=== PATIENT | male | born 1995 | race Hispanic/Latino ===

== ENCOUNTER 2022-11-13 17:50 | Day surgery (SDC) | payer SELFPAY ==
[2022-11-13 18:04] LABS: #Basophils 0.1 thou/uL (0.0-0.2); #Eosinphils 0.2 thou/uL (0.0-0.7); #Monocytes 0.7 thou/uL (0.11-0.59); #Neutrophils 5.1 thou/uL (1.40-6.50); %Basophils 0.5 % (0.0-1.0); %Eosinophils 1.9 % (0.0-10.0); %Lymphocytes 34.8 % (21.0-51.0); %Neutrophils 54.6 % (42.0-75.0); Hematocrit 45.7 % (42.0-52.0); Hemoglobin 15.5 g/dL (14.0-18.0); Mean Corpuscular HGB CONC 33.9 g/dL (32.0-36.0); Mean Corpuscular Hemoglobin 30.5 pg (27.0-31.0); Mean Platelet Volume 9.6 fL (7.4-10.4); Platelet Count 274 10x3/uL (130-400); RBC Distribution Width 12.6 % (11.5-14.5); Red Blood Cell (RBC) Count 5.08 mill/uL (4.70-6.10); White Blood Cell (WBC) Count 9.3 10x3/uL (4.8-10.8)
[2022-11-13] MEDS ORDERED: Morphine 4 MG/ML VIAL ONE ×3 (18:04→18:19)
[2022-11-13] MEDS ORDERED: SUGAMMADEX SODIUM 200 MG/2 ML VIAL ONE (18:13)
[2022-11-13] MEDS ORDERED: Sevoflurane 250 ML INH ANEST BOTTLE ONE (18:13)
[2022-11-13] MEDS ORDERED: Famotidine/PF 20 mg/2ml Vial ONE (18:13)
[2022-11-13] MEDS ORDERED: fentaNYL 50 mcg/mL 1 mL Vial ONE ×2 (18:13)
[2022-11-13 18:17] LABS: INR-International Normal Ratio 0.9; PTT 27.1 sec (22.9-36.1)
[2022-11-13] MEDS ORDERED: Heparin 5,000 UNITS/ML VIAL ONE (18:24)
[2022-11-13] MEDS ORDERED: Protamine Sulfate 50 MG/5 ML VIAL ONE (18:24)
[2022-11-13 18:30] LABS: ALT (SGPT) 106 U/L (8-55); AST (SGOT) 41 U/L (5-34); Albumin 4.4 g/dL (3.5-5.0); Alkaline Phosphatase 90 U/L (40-110); Anion Gap 12 mmol/L (10-20); BUN (Urea Nitrogen) 15 mg/dL (8.9-20.6); Bilirubin, Total 0.3 mg/dL (0.2-1.2); Calc. Creatinine Clearance 0 mL/min (70-130); Calcium 8.8 mg/dL (7.8-10.44); Carbon Dioxide 24 mmol/L (22-29); Chloride 107 mmol/L (98-107); Estimated GFR 81; Globulin 3.3 g/dL (2.4-3.5); Glucose 124 mg/dL (70-105); Potassium 3.9 mmol/L (3.5-5.1); Protein, Total 7.7 g/dL (6.0-8.3); Sodium 139 mmol/L (136-145)
[2022-11-13] MEDS ORDERED: Ondansetron PF 4 MG/2 ML Vial ONE (18:41)
[2022-11-13] MEDS ORDERED: PROPOFOL 200 MG/20 ML VIAL ONE (18:41)
[2022-11-13] MEDS ORDERED: NEOSTIGMINE 3 MG/3 ML SYR 3 MG/3 ML SYRINGE ONE (18:41)
[2022-11-13] MEDS ORDERED: Glycopyrrolate 0.2 MG/ML 5 ML SYRINGE ONE (18:41)
[2022-11-13] MEDS ORDERED: Succinylcholine 200 MG/10 ml SYRINGE FS ONE (18:41)
[2022-11-13] MEDS ORDERED: Rocuronium Bromide 10 MG/ML (10ML VIAL) ONE (18:41)
[2022-11-13] MEDS ORDERED: Metoclopramide HCl 10 MG/2 ML VIAL ONE (18:41)
[2022-11-13] MEDS ORDERED: Lidocaine 1% PF 5 ML VIAL ONE (18:41)
[2022-11-13] MEDS ORDERED: Dexamethasone 20 MG/5 ML VIAL ONE (18:41)
[2022-11-13] MEDS ORDERED: Ketorolac Tromethamine 30 MG/ML VIAL ONE (18:41)
[2022-11-13] MEDS ORDERED: hydrALAZINE 20 MG/ML VIAL SLOW IVP PRN (18:42)
[2022-11-13] MEDS ORDERED: TETANUS, DIPHTHERIA TOX,ADULT (TDVAX) 0.5 ML VIAL IM ONE (18:42)
[2022-11-13] MEDS ORDERED: Morphine 2 MG/ML VIAL SLOW IVP PRN (18:42)
[2022-11-13] MEDS ORDERED: Glucagon 1 MG/ML KIT IM PRN (18:42)
[2022-11-13] MEDS ORDERED: Ipratropium/Albuterol 3 ML NEB NEB PRN (18:42)
[2022-11-13] MEDS ORDERED: Dextrose 50% Abboject 50 ML SYRINGE SLOW IVP PRN (18:42)
[2022-11-13] MEDS ORDERED: Dextrose 5% in Water 1,000 ML IV PRN (18:42)
[2022-11-13] MEDS ORDERED: Ondansetron PF 4 MG/2 ML Vial IVP PRN (18:42)
[2022-11-13] MEDS ORDERED: Sodium Chloride 0.9% 1,000 ML IV SCH (18:45)
[2022-11-13] MEDS ORDERED: EPINEPHrine 1 MG/ML AMP ONE (18:56)
[2022-11-13] MEDS ORDERED: Bupivacaine PF 0.5% 30 ML VIAL ONE (18:56)
[2022-11-13] MEDS ORDERED: Ondansetron HCl/PF 4 MG/2 ML Vial IVP PRN (19:28)
[2022-11-13] MEDS ORDERED: Meperidine HCl/PF 25 MG/ML VIAL SLOW IVP PRN (19:28)
[2022-11-13] MEDS ORDERED: Promethazine HCl 25 MG/ML VIAL IM PRN (19:28)
[2022-11-13] MEDS ORDERED: Famotidine 20 MG TAB PO SCH (21:00)
[2022-11-13] MEDS ORDERED: traMADol HCl 50 MG TAB PO SCH (23:59)
[2022-11-13] MEDS ORDERED: Acetaminophen 500 MG TAB PO SCH (23:59)
== END 2022-11-13 20:25 | disposition home or self-care (01) ==
LOC: ERS 17:50 → SDC/OP 18:36 → SUATTDRO 18:36 → SDC/OP 20:25
PROVIDERS: ADMIT Surgery; ATTEND Surgery
DX: S45.911A Laceration of unspecified blood vessel at shoulder and upper arm level, right arm, initial encounter (principal); Z79.899 Other long term (current) drug therapy; W26.8XXA Contact with other sharp object(s), not elsewhere classified, initial encounter
CPT/HCPCS: 36415; 80053; 85025; 85610; 85730; 86850; 86900; 86901; 93005; J0171; J1100; J1644; J1885; J2270; J2405; J2704; J2720; J2765; J3010; S0020; S0028